=== PATIENT | male | born 1975 | race American Indian/Alaskan Native ===

== ENCOUNTER 2016-08-04 04:54 | Emergency (ER) | payer SELFPAY ==
[2016-08-04 05:04] VITALS: BP 151/104
[2016-08-04 05:51] LABS: Basophils % (Auto) 0.6 % (0.0-1.8); Eosinophils % (Auto) 7.6 % (0.0-4.3); Hematocrit 44.3 % (35.5-45.6); Hemoglobin 14.5 gm/dl (11.8-15.2); Mean Corpuscular HGB Conc 33 % (32-34); Mean Corpuscular Hemoglobin 30 pg (28-32); Mean Corpuscular Volume 90 fl (84-94); Platelet Count 209 K/mm3 (140-440); Red Blood Count 4.92 M/mm3 (3.65-5.03); Red Cell Distribution Width 15.7 % (13.2-15.2); White Blood Count 6.5 K/mm3 (4.5-11.0)
--- NOTE | 2016-08-04 06:03 | Cat Scan Report ---
FINAL REPORT PROCEDURE: CT ABDOMEN PELVIS WO CON TECHNIQUE: Computerized axial tomography of the abdomen and pelvis was performed without intravenous contrast. This study is performed without intravascular contrast material and its sensitivity for abdominal and pelvic pathology, including neoplasms, inflammation, abscess, free fluid, thrombosis, arterial dissection and infarction, is reduced compared with a contrast enhanced study. HISTORY: abd pain umbilical COMPARISON: No prior studies are available for comparison. FINDINGS: Visualized lower thorax: No significant abnormality. Liver: Normal size and attenuation. Spleen: Normal size and attenuation. Gallbladder and biliary system: Normal. Pancreas: Normal. Adrenals: Normal. Kidneys: Both kidneys have a normal size. No hydronephrosis is noted. There is a 2 centimeters cystic structure off of the mid central left renal cortex, a cyst is suspected.. GI tract: No obstruction. No ileus or enteritis. The cecum, appendix and colon are normal.. Lymph nodes and mesentery: Normal. Vasculature: Normal. Bladder: Normal. Reproductive organs: Normal. Peritoneum: No free fluid. Musculoskeletal structures: No significant abnormality. Other: There is a small fat containing central ventral hernia. IMPRESSION: There is no evidence of intestinal or urinary tract obstruction. No ileus or enteritis. The appendix is normal..
[2016-08-04 06:16] LABS: Alanine Aminotransferase 25 units/L (7-56); Albumin 4.4 g/dL (3.9-5); Albumin/Globulin Ratio 1.3 %; Alkaline Phosphatase 78 units/L (35-129); Anion Gap 18 mmol/L; Bilirubin,Total 0.6 mg/dL (0.1-1.2); Blood Urea Nitrogen 12 mg/dL (9-20); Calcium 9.4 mg/dL (8.4-10.2); Carbon Dioxide 27 mmol/L (22-30); Chloride 102.8 mmol/L (98-107); Glucose 102 mg/dL (75-100); Lipase 45 units/L (13-60); Potassium 4.6 mmol/L (3.6-5.0); Sodium 143 mmol/L (137-145); Total Protein 7.8 g/dL (6.3-8.2)
[2016-08-04 06:49] LABS: Bilirubin,Urine NEG (Negative); Blood,Urine NEG (Negative); Ketones,Urine 20 mg/dL (Negative); Leukocyte Esterase,Urine NEG (Negative); Mucus,Urine FEW /HPF; Nitrite,Urine NEG (Negative); Protein,Urine <15 mg/dL mg/dL (Negative); WBC,Urine < 1.0 /HPF (0.0-6.0)
== END 2016-08-04 09:05 | disposition left against medical advice (07) ==
LOC: ED 04:54
DX: R10.33 Periumbilical pain (principal); Z53.21 Procedure and treatment not carried out due to patient leaving prior to being seen by health care provider
CPT/HCPCS: 36415; 74176; 80053; 81001; 83690; 85025

== ENCOUNTER 2016-09-21 06:04 | Observation (INO) | payer BC ==
[~2016-09-21 06:04] MED LIST: MARCAINE-EPI 0.5%-1:200,000 INFILTRATI ONE; PEPCID PO NR; VERSED IV NR
[2016-09-21] MEDS ORDERED: ceFAZolin 2 GM in NACL 0.9% 100 ML IV NR (06:30)
[2016-09-21] MEDS ORDERED: DIPRIVAN 10 MG/ML IV ONE (06:53)
[2016-09-21] MEDS ORDERED: DILAUDID ONE (06:54)
[2016-09-21] MEDS ORDERED: NACL BACTERIOSTATIC INFILTRATI ONE (06:58)
[2016-09-21] MEDS ORDERED: ANCEF/STERILE WATER 2 GM/20 ML IV NR (07:00)
[2016-09-21] MEDS ORDERED: ANCEF/STERILE WATER 2 GM/20 ML 2 GM/20 ML SYRINGE IV SCH (07:00)
[2016-09-21] MEDS: NACL 0.9% 1000 ML 1,000 ML IV SCH (07:05)
[2016-09-21] MEDS ORDERED: MARCAINE-EPI 0.5%-1:200,000 INFILTRATI ONE ×2 (07:14→08:39)
[2016-09-21] MEDS ORDERED: ZOFRAN IV PRN ×2 (07:22→11:00)
[2016-09-21] MEDS ORDERED: DILAUDID IV PRN (07:22)
--- NOTE | 2016-09-21 07:22 | Anesthesia Consultation ---
Anesthesia Consult and Med Hx Date of service: 09/21/16 - Airway Anesthetic Teeth Evaluation: Good, Chipped (top molar on left and right) ROM Head & Neck: Adequate Mental/Hyoid Distance: Adequate Mallampati Class: Class II Intubation Access Assessment: Probably Good - Pulmonary Exam CTA: Yes - Cardiac Exam Cardiac Exam: RRR - Pre-Operative Health Status ASA Pre-Surgery Classification: ASA2 Proposed Anesthetic Plan: General - Pulmonary Hx Smoking: No Hx Asthma: Yes Hx Sleep Apnea: No - Cardiovascular System Hx Hypertension: No Hx Heart Attack/AMI: No - Central Nervous System Hx Seizures: No CVA: No - Endocrine Hx Renal Disease: No Hx Cirrhosis: No Hx Non-Insulin Dependent Diabetes: No Hx Hypothyroidism: No - Other Systems Hx Cancer: No Hx Obesity: Yes
--- NOTE | 2016-09-21 07:22 | Anesthesia Day of Surgery ---
Anesthesia Day of Surgery - Day of Surgery Patient Examined: Yes Patient H&P Reviewed: Yes Patient is NPO: Yes
[2016-09-21] MEDS ORDERED: XYLOCAINE MPF 2% ONE (08:18)
[2016-09-21] MEDS ORDERED: ZEMURON IV ONE (08:19)
[2016-09-21] MEDS ORDERED: ROBINUL ONE (08:19)
[2016-09-21] MEDS ORDERED: QUELICIN ONE (08:19)
[2016-09-21] MEDS ORDERED: NEOSTIGMINE ONE (08:20)
[2016-09-21] MEDS ORDERED: PERCOCET 5/325 PO PRN (08:42)
--- NOTE | 2016-09-21 09:11 | Post Anesthesia Evaluation ---
- Post Anesthesia Evaluation Patient Participated: Yes Airway Patent: Yes Stable Respiratory Function: Yes Nausea/Vomiting: No Temp > 96.8F: Yes Pain Manageable: Yes Adequeate Hydration: Yes Anesthesia Complications: No Block Receding Appropriately: Not Applicable Patient on Ventilator: No
[2016-09-21] MEDS ORDERED: D5W/0.45% NACL/KCL 30 MEQ 30 MEQ/1,000 ML BAG IV SCH (10:00)
[2016-09-21] MEDS ORDERED: MORPHINE IV PRN (11:00)
--- NOTE | 2016-09-21 11:50 | Operative Report ---
PREOPERATIVE DIAGNOSIS: Ventral hernia. POSTOPERATIVE DIAGNOSIS: Incarcerated ventral hernia. PROCEDURE: 1. Removal of incarcerated omentum (partial omentectomy). 2. Ventral hernia repair with mesh. SURGEON: Rei Olivier MD. ANESTHESIA: General. ESTIMATED BLOOD LOSS: Minimal. DRAINS: None. COMPLICATIONS: None. PROCEDURE IN DETAIL: The patient was taken to the operating room, prepped and draped in usual sterile fashion. The palpable hernia had been outlined with a marking pencil. A 10-blade was used to incise skin and subcutaneous tissues. An electrocautery was used to dissect down to the fascia. Upon reaching the fascia, fascial defect was noted with approximately 5-6 cm lobule of incarcerated omentum within the subcutaneous. The omentum was slowly dissected from the surrounding subcutaneous and partial omentectomy performed. A portion of the specimen. The ____ was returned to the intra-abdominal cavity. The undersurface of the fascia was then palpated to assure no incarcerated omentum or bowel, none was noted. The area was irrigated copiously and dried. Checked for hemostasis and noted to be dry. The fascia was then closed with interrupted #1 Vicryl sutures. An onlay Marlex mesh was then placed over the fascia. This was secured to the fascia with interrupted 3-0 Vicryl. Area was once again irrigated copiously and dried. Checked for hemostasis and noted to be dry. Subcutaneous was then closed over the mesh with interrupted 3-0 Vicryl suture. The skin was closed with emeli. A 0.5% Marcaine with epinephrine was infiltrated over the fascia as well as subcutaneous and skin for postoperative pain relief. Fluffs and pressure dressings applied. Abdominal binder will also be placed. The patient tolerated the procedure well and left the OR in stable condition. JOB# [id number] LEYDI/SUSY
[2016-09-21] MEDS: MORPHINE IV PRN ×2 (12:04→15:00)
[2016-09-21] MEDS: COLACE PO SCH (12:05)
[2016-09-21] MEDS: ANCEF/NS 1 GM/50 ML 1 GM/50 ML BAG IV SCH (15:01)
[2016-09-22] MEDS: ANCEF/NS 1 GM/50 ML 1 GM/50 ML BAG IV SCH (01:38)
--- NOTE | 2016-09-22 07:13 | Admit Criteria Form ---
Admission Criteria Documentation: AMBULATORY SURGERY EXCEPTION CRITERIA Ambulatory Surgery Exception Criteria ( Place 'X' for any and all applicable criteria): Surgery or procedure performed on ambulatory basis may require inpatient stay for[A] ANY ONE of the following(1)(2)(3)(4)(5)(6)(7)(8)(9): [X] I. A preoperative situation, condition, or finding that warrants inpatient stay as indicated by ANY ONE of the following: [X] a) Inpatient care needed because of severity of a disease or condition rather than the surgery (eg, severe cardiac or respiratory disease, severe infection) (15) (16 ) (17) (18) [] b) Emergent procedure (eg, angioplasty for acute ischemia)(19) [] c) Complex surgical approach or situation as indicated by ANY ONE of the following(3): [] i) Open approach needed instead of usual endoscopic, transcatheter, or other less invasive procedure [] ii) Difficult approach because of previous operation [] iii) Airway monitoring required after open neck procedures(20)(21) [] iv) Large mass requiring unusually extensive dissection [] v) Additional complicating feature requiring inpatient care (eg, drain management)(22(23): [] d) Major surgery in a pt with high anesthetic risk as indicated by ANY ONE of the following (2)(3)(5)(7)(8): [] i) ASA risk class III or higher (severe systemic disease impairing function) [D] [] ii) Advanced age (eg, older than 85 years)(14)(24) [] iii) Symptomatic heart failure(25) [] iv) Symptomatic asthma or COPD(8)(21) [] v) Morbid obesity with hemodynamic or respiratory problems(20)( 21)(26)(27) [] vi) Obstructive sleep apnea(20)(21) [] vii) Former premature infants who are younger than 60 weeks [] viii) High risk for severe postoperative abnormalities (eg, severe postoperative hypocalcemia after parathyroidectomy for severe hyperparathyroidism)(27)( 28) [] ix) Unstable angina(25) [] e) Drug-related risk requiring inpatient stay as indicated by ANY ONE of the following(5)(10)(14)(32)(33) [] i) Procedure requires discontinuing drugs or other therapy (eg , antiarrhythmic medication, antiseizure medication), which necessitates inpatient observation or treatment.(18)(31) [] ii) Major surgery and high risk drug use as indicated by ANY ONE of the following: [] 1) Active abuse of cocaine or similar drug [] 2) Monoamine oxidase inhibitor use [] 3) Other drug identified as posing risk [] f) Inadequate outpatient care situation as indicated by ANY ONE of the following(5)(10)(14)(32)(33) [] i) Patient lives remote from medical facility and procedure has urgent complication potential, and temporary nearby residence cannot be arranged [] ii) Patient will have postprocedure incapacitation and inadequate assistance at home, or alternative level of care cannot be arranged. [] iii) Patient will have long general anesthesia or procedure side effect resolution time, and competent person to stay with patient on first postoperative night at home or alternative level of care cannot be arranged. []iv) Other inadequate outpatient situation that cannot be handled by other means [] II. A perioperative event, condition, or finding that warrants inpatient stay as indicated by ANY ONE of the following (1)(2)(3): [] a) Inadequate physiologic recovery: cardiovascular, respiratory, or hemodynamic status not normal or near preoperative baseline(18) [] b) Hemodynamic instability [] c) Patient not alert with near normal or baseline mental status [] d) Temperature not normal or as expected and not appropriate for outpatient treatment of condition [] e) Ambulatory or appropriate activity level status not yet achieved post procedure [E](34)(35)(36) [] f) Operative site not appropriate (eg, unexpected or excessive drainage or bleeding) [] g) Postoperative effects not resolved or adequately managed (eg, significant pain or vomiting not appropriate for outpatient or next level of care)(10)(12) [] h) Complicating features requiring inpatient care as indicated by ANY ONE of the following(37): [] i) Severe complications of procedure (eg, bowel injury, airway compromise, vascular injury,severe hemorrhage) [] ii) Extensive (eg, dissection far beyond usual scope of procedure ) or prolonged (eg, 120 minutes beyond usual) surgery needed requiring inpatient postoperative care [] iii) Conversion to an open or complex procedure that requires inpatient care (eg, open vs laparoscopic cholecystectomy, abdominal vs vaginal hysterectomy)(38) [] iv) Comorbid condition or test result identified during or post procedure that requires inpatient care (7) [] v) Malignant hyperthermia(30) [] vi) Other complicating feature requiring inpatient care(22)(23) Inpatient stay may be needed until ALL of the following are present (1)(2)(3)(4) (5)(6)(10)(14)(33)(40): []a) Physiologic recovery: cardiovascular, respiratory, and hemodynamic status normal or near preoperative baseline []b) Hemodynamic stability []c) Patient alert, with near normal or baseline mental status []d) Temperature appropriate: patient afebrile or temperature appropriate for outpt treatment of condition []e) Activity level appropriate: ambulatory or appropriate activity level post procedure []f) Operative site appropriate as indicated by ALL of the following: []i) Site dry or with expected drainage []ii) Any blood noted is as expected for procedure. []g) Postoperative effects resolved or managed as indicated by ALL of the following: []i) Pain management appropriate for outpatient (or next level of) care(10) []ii) Minimal nausea and vomiting: if present, successfully treated with oral medication(12) []iii) Headache, dizziness, or drowsiness (if present) are mild. []h) Voiding status acceptable as indicated by ANY ONE of the following: []i) Voiding spontaneously []ii) No voiding but instructions given for follow-up in 6 to 8 hours []iii) Urinary catheter in place, and instructions given for follow-up []i) Complicating features requiring inpatient care manageable at a lower level of care(37) []j) Comorbid conditions manageable at a lower level of care(37) The original [employer] content created by [employer] has been revised. The portions of the content which have been revised are identified through the use of italic text or in bold, and [employer] has neither reviewed nor approved the modified material. All other unmodified content is copyright [employer]. Please see references footnoted in the original [employer] edition 2016 Admission Criteria Met: Yes
[2016-09-22] MEDS: MORPHINE IV PRN ×2 (09:53→14:39)
[2016-09-22] MEDS: COLACE PO SCH (09:54)
[2016-09-22] MEDS: NACL 0.9% 1000 ML 1,000 ML IV SCH (11:20)
[2016-09-22 11:47] VITALS: BP 126/84
--- NOTE | 2016-09-22 13:01 | Discharge Summary ---
Short Stay Discharge Plan Activity: other (reg diet, september d/c today if diet rachell. keep dressings dry x 5 days. surfak 1 po q am x 3 rto this wed) Weight Bearing Status: Partial Weight Bearing (no lifting over 5 lbs x 3 wks. abd binder x 3 wks) Diet: regular Wound: keep clean and dry Follow up with: BJ BAUM MD [Staff Physician] - 09/25/16
== END 2016-09-22 15:45 | disposition home or self-care (01) ==
LOC: OR 06:04 → 2B-SURG 08:42
PROVIDERS: ADMIT Surgery; ATTEND Surgery
DX: K43.6 Other and unspecified ventral hernia with obstruction, without gangrene (principal); E66.9 Obesity, unspecified; J45.909 Unspecified asthma, uncomplicated
CPT/HCPCS: 49561; 49568; 88304; 96365; 96375; 96376; C1781; G0378; J0330; J0690; J1170; J2250; J2270; J2405; J2704; J2710; J7030; 88302